=== PATIENT | female | born 1975 | race Caucasian/White ===

== ENCOUNTER → 2018-01-13 14:25 | Outpatient (CLI) | payer OTHER, MEDICAID, SELFPAY | PROVIDERS: Family Provider Podiatrist; PCP Physician Assistant; Visit Provider Physician Assistant | DX: L02.91 Cutaneous abscess, unspecified (principal) | CPT/HCPCS: 87070; 87075; 87077; 87147; 87186; 87205 ==

== ENCOUNTER 2020-12-28 16:59 | Emergency (ER) | payer OTHER, MEDICAID, SELFPAY ==
[2020-12-28 17:22] VITALS: BP 201/103; PULSE 106; RESP 22; TEMP 36.6; O2SAT 97; BMI 41.5
--- NOTE | 2020-12-28 18:21 | DI.CT.S_ITS ---
PROCEDURE: CT FACIAL BONES W CON INDICATIONS: facial swelling, suspect dental abscess, ? retro-orbital inf TECHNIQUE: After the administration of intravenous contrast, 2.5 mm axial sections acquired from the mid-neck to the frontal sinuses, with coronal and sagittal reformats. For radiation dose reduction, the following was used: automated exposure control, adjustment of mA and/or kV according to patient size. COMPARISON: None. FINDINGS: There are multiple carious lesions and multiple periapical lucencies. There are few small areas of focal dehiscence of the maxillary alveolar ridge adjacent to a few of the periapical lucencies. Adjacent to one of these areas of dehiscence there is increased soft tissue enhancement surrounding a central low-density area of suspected phlegmonous change measuring 1.2 centimeters (series 3, image 26). This is not an organized fluid collection and is not peripherally enhance, suggesting it does not represent an abscess. There is mild soft tissue swelling in the right malar region surrounding this phlegmonous change. Orbital structures are normal in appearance. There is no fracture. Limited intracranial views demonstrate no abnormal enhancement. Right sphenoid sinus fluid level suggesting acute sinusitis. IMPRESSION: Multifocal carious disease with associated kaitlin-apical lucencies and diffuse foci of alveolar ridge dehiscence, including one with some reactive soft tissue changes and phlegmonous change, but no abscess. No CT evidence of orbital cellulitis or orbital infection. Dictated by: Getachew Reddy M.D. on 12/28/2020 at 19:18 Approved by: Getachew Reddy M.D. on 12/28/2020 at 19:23
--- NOTE | 2020-12-28 18:51 | ED.GENADULT ---
HPI - General Adult General Chief complaint: Dental/Oral Stated complaint: RIGHT SIDE FACE SWELLING Time Seen by Provider: 12/28/20 18:03 Source: patient and family Mode of arrival: Family Vehicle Limitations: no limitations History of Present Illness HPI narrative: 45-year-old woman no significant medical history presents with right facial swelling that is been increasing over the last 3 days. She states that initially started over the right maxillary area with pain radiating to the eye that year and the right side of the jaw. Was initially tolerable but today became significantly worse with increasing swelling. She was seen in the urgent care clinic and a CT scan was ordered however when she presented to the hospital to have the scan done she was told that she needed insurance approval. About that time she had significant increased pain and then began having prolonged bloody discharge from both her nose and her mouth with increasing pain around her eye and some scotomata noticed on the right side peripheral field eye. Pain has gotten worse, swelling has slightly decreased. She describes no fevers, cough, chills, abdominal pain, vomiting. She does not describe any fullness extending down the back of her throat or breathing difficulties. No significant headaches. Related Data Previous Rx's Medication Instructions Recorded Disabled Parking Placard #1 ea 12/07/18 amoxicillin 875 mg-potassium 1 tab PO BID #20 tab 12/28/20 clavulanate 125 mg tablet (Augmentin) amoxicillin 875 mg-potassium 1 tab PO BID #20 tab 12/28/20 clavulanate 125 mg tablet (Augmentin) ibuprofen 400 mg tablet 400 mg PO Q6H PRN #30 tab 12/28/20 ibuprofen 400 mg tablet (IBU) 400 mg PO Q6H PRN #30 tab 12/28/20 oxycodone-acetaminophen 5 mg-325 1 tab PO Q6H PRN #10 tab 12/28/20 mg tablet oxycodone-acetaminophen 5 mg-325 1 tab PO Q8H PRN #14 tab 12/28/20 mg tablet (Endocet) Allergies Allergy/AdvReac Type Severity Reaction Status Date / Time erythromycin base Allergy Severe Hives, Verified 12/28/20 17:22 [ERYTHROMYCIN BASE] rash, swelling succinylcholine Allergy Severe anaphylaxis Verified 12/28/20 17:22 [SUCCINYLCHOLINE] aspirin [ASPIRIN] Allergy Mild Rash, Verified 12/28/20 17:22 nausea Review of Systems Review of Systems Narrative: Remainder of complete review of systems is otherwise unremarkable except for that included in the HPI. Patient History Medical History Ankle pain (~2015) Anxiety (~1999) Chronic back pain (~2011) History of bipolar disorder (~1999) Migraines (~1999) PTSD (post-traumatic stress disorder) (~1999) Shoulder pain (~1999) Surgical History Anesthesia History of back surgery (~2005) History of cholecystectomy (~1996) Status post tubal ligation (~1998) Family History Father History of heart attack History of heart disease Sister Cervical cancer Social History Smoking Status: Former smoker Tobacco: How many years used: 20 second hand exposure: No alcohol intake: former (Quit 2014) substance use type: marijuana (smoke, daily) Smoking Status: Former smoker tobacco type: cigarettes alcohol intake frequency: 0-2 drinks per day Substance Use Type: marijuana Exam Narrative Exam Narrative: General: Healthy appearing, notable facial pain. Able to give a complete and coherent history. Well-nourished well-developed HEENT: Moist mucous membranes, normal sclera with reactive pupils, nonpainful and non restricted extra ocular eye movements bilaterally. Fullness over the right maxilla. Neck: No JVD, supple Respiratory: Lungs are clear to auscultation, no wheezing no rales no rhonchi. Full and symmetrical air movement Cardiac: Regular rate and rhythm no murmurs no bruits Abdomen: Soft, nontender, good bowel tones, no flank pain Skin: Warm and dry, no rashes Neurologic: Grossly neurologically intact with no obvious asymmetries or abnormalities Extremities: No trauma, well perfused Psych: Cooperative, appropriate insight and affect Initial Vital Signs Initial Vital Signs: Vital Signs Temperature 97.8 F 12/28/20 17:22 Pulse Rate 106 H 12/28/20 17:22 Respiratory Rate 22 12/28/20 17:22 Blood Pressure 201/103 H 12/28/20 17:22 Pulse Oximetry 97 12/28/20 17:22 Course Orders Ordered: ED Orders 12/28/20 18:58 Complete Blood Count AUTO DIFF Stat Comprehensive Metabolic Panel Stat 12/28/20 19:03 COVID19 - ADMIT (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/PCR) Stat Discontinued Medications Ketorolac Tromethamine (Ketorolac 30 Mg/Ml Vial) 15 mg IV NOW ONE Stop: 12/28/20 18:22 Last Admin: 12/28/20 18:56 Dose: 15 mg Documented by: NU Oxycodone/Acetaminophen (Oxycodone/Apap 5/325 Prepack) 1 bottle MISC SEEINSTR ONE Stop: 12/28/20 21:07 Last Admin: 12/28/20 21:10 Dose: 1 bottle Documented by: TIM Oxycodone/Acetaminophen (Oxycodone/Acetaminophen 5/325 Tablet) 1 tab PO NOW ONE Stop: 12/28/20 21:07 Last Admin: 12/28/20 21:10 Dose: 1 tab Documented by: TIM Vital Signs Vital signs: Vital Signs - 8 hr 12/28/20 20:30 Pulse Rate 88 Respiratory Rate 20 Blood Pressure 169/80 H Pulse Oximetry 99 Medical Decision Making Lab Data Result diagrams: 12/28/20 18:58 12/28/20 18:58 Labs: Lab Results 12/28/20 12/28/20 12/28/20 Range/Units 18:58 18:58 19:03 WBC 11.3 H (4.5-11.0) X10^3/uL RBC 5.52 H (4.0-5.2) X10^6/uL Hgb 15.5 (12.0-16.0) g/dL Hct 46.1 H (36-46) % MCV 83.5 (80-100) fL MCH 28.0 (26-34) PG MCHC 33.6 (30-36) % RDW 13.8 (11.6-14.8) % Plt Count 200 (150-400) X10^3/uL Neut % (Auto) 64.1 (50-75) % Lymph % (Auto) 27.9 (25-40) % [place] % (Auto) 5.9 (3-14) % Eos % (Auto) 1.2 L (2-4) % Baso % (Auto) 0.9 (0-2) % Neut # (Auto) 7200 H (6431-2751) /uL Lymph # (Auto) 3200 (5852-3457) /uL [place] # (Auto) 700 (0-900) /uL Eos # (Auto) 100 (0-450) /uL Baso # (Auto) 100 (0-100) /uL Sodium 135 L (137-145) mmol/L Potassium 4.0 (3.4-5.1) mmol/L Chloride 103 (98-107) mmol/L Carbon Dioxide 23 (22-32) mmol/L BUN 7 (7-17) mg/dL Creatinine 0.46 L (0.52-1.04) mg/dL Estimated GFR > 60.0 (>60) mL/min BUN/Creatinine Ratio 15.2 (6-22) Glucose 249 H (70-100) mg/dL Calcium 10.4 H (8.4-10.2) mg/dL Total Bilirubin 0.5 (0.2-1.3) mg/dL AST 29 (14-36) IU/L ALT 28 (<35) IU/L Alkaline Phosphatase 78 (38-126) U/L Total Protein 8.5 H (6.3-8.2) g/dL Albumin 4.6 (3.5-5.0) g/dL Globulin 3.9 (1.7-4.1) g/dL Albumin/Globulin Ratio 1.2 (1.0-2.8) SARS-CoV-2 (PCR) Negative (Negative) Imaging Data CT face: Radiologist's Impression: FINDINGS: There are multiple carious lesions and multiple periapical lucencies. There are few small areas of focal dehiscence of the maxillary alveolar ridge adjacent to a few of the periapical lucencies. Adjacent to one of these areas of dehiscence there is increased soft tissue enhancement surrounding a central low-density area of suspected phlegmonous change measuring 1.2 centimeters (series 3, image 26). This is not an organized fluid collection and is not peripherally enhance, suggesting it does not represent an abscess. There is mild soft tissue swelling in the right malar region surrounding this phlegmonous change. Orbital structures are normal in appearance. There is no fracture. Limited intracranial views demonstrate no abnormal enhancement. Right sphenoid sinus fluid level suggesting acute sinusitis. IMPRESSION: Multifocal carious disease with associated kaitlin-apical lucencies and diffuse foci of alveolar ridge dehiscence, including one with some reactive soft tissue changes and phlegmonous change, but no abscess. No CT evidence of orbital cellulitis or orbital infection. Dictated by: Getachew Reddy M.D. on 12/28/2020 at 19:18 MDM Narrative Medical decision making narrative: 45-year-old woman with dental infection developing abscess in the maxillary area that has recently opened up and now appears to be draining. No evidence of extension into the brain, periorbital space or sinuses. No retropharyngeal abscess. She is given ceftriaxone in the emergency department. Pain is controlled. Discharged home with Augmentin. Strongly recommended she follow-up with a dentist and will likely benefit from having all of her teeth pulled. She was not aware that she had a diagnosis of diabetes because she ?has always had hypoglycemia ?. A shared with her her single elevated blood sugar today and suggested she follow-up with her primary care physician regarding her very likely diagnosis of diabetes being aggravated by her chronic oral infections. She is safe for home discharge Discharge Plan Departure Patient Disposition: Home Clinical Impression: Dental caries, Dental abscess Instructions: DI for Tooth Decay Activity Restrictions/Additional Instructions: You do have a large dental abscess that is now draining. This is the cause of the severe pain and facial swelling. Fortunately there is no evidence the abscess is working its way around your eye ball or back anterior brain or down your throat. The fact that it is now draining is actually very encouraging for healing. You have multiple other small abscesses associated with your upper teeth as well. I am going to have you take 10 days of Augmentin to treat the abscesses as they are now however having your teeth pulled is going to be the definitive treatment. Using 400 mg of ibuprofen (2 [id number] pills) and 1 Tylenol every 6 hours can be very helpful in controlling pain. For severe pain 400 mg of ibuprofen and 1 Percocet can be helpful All prescriptions have been electronically transmitted to [facility] for you today Incidentally, your blood sugar was elevated in the 240 range today. This by itself is a diagnosis of diabetes. Getting a your teeth fixed and the chronic infection resolved will make a big difference in control of your diabetes. I would encourage you follow-up with your primary care physician to discuss this diagnosis, need for medications and further follow-up. I wish you the best Prescriptions: New amoxicillin-pot clavulanate [Augmentin] 875-125 mg tablet 1 tab PO BID Qty: 20 RF: 0 oxycodone-acetaminophen [Endocet] 5-325 mg tablet 1 tab PO Q8H PRN (Reason: pain) Qty: 14 RF: 0 ibuprofen [IBU] 400 mg tablet 400 mg PO Q6H PRN (Reason: pain) Qty: 30 RF: 0 amoxicillin-pot clavulanate [Augmentin] 875-125 mg tablet 1 tab PO BID Qty: 20 RF: 0 oxycodone-acetaminophen 5-325 mg tablet 1 tab PO Q6H PRN (Reason: pain) Qty: 10 RF: 0 ibuprofen 400 mg tablet 400 mg PO Q6H PRN (Reason: pain) Qty: 30 RF: 0 No Action (DME) Disabled Parking Placard Qty: 1 RF: 0 Referrals: Bonnie Griffin ARNP [Primary Care Provider] -
[2020-12-28] MEDS: KETOROLAC 30 MG/ML VIAL 15 MG IV (18:56)
[2020-12-28 19:25] LABS: Add Manual Diff / Slide Review NO; Basophils Absolute Auto 100 /uL (0-100); Basophils Percent Auto 0.9 % (0-2); Eosinophils Absolute Auto 100 /uL (0-450); Eosinophils Percent Auto 1.2 % (2-4); Hematocrit 46.1 % (36-46); Hemoglobin 15.5 g/dL (12.0-16.0); Lymphocytes Absolute Auto 3200 /uL (1100-4500); Lymphocytes Percent Auto 27.9 % (25-40); Mean Corpuscular HGB Conc 33.6 % (30-36); Mean Corpuscular Volume 83.5 fL (80-100); Monocytes Absolute Auto 700 /uL (0-900); Monocytes Percent Auto 5.9 % (3-14); Neutrophils Absolute Auto 7200 /uL (1500-7000); Neutrophils Percent Auto 64.1 % (50-75); Platelet Count 200 X10^3/uL (150-400); Red Blood Cell Count 5.52 X10^6/uL (4.0-5.2); Red Cell Distribution Width 13.8 % (11.6-14.8); White Blood Cell Count 11.3 X10^3/uL (4.5-11.0)
[2020-12-28 19:44] LABS: Alanine Aminotransferase 28 IU/L (<35); Albumin 4.6 g/dL (3.5-5.0); Albumin Globulin Ratio 1.2 (1.0-2.8); Alkaline Phosphatase 78 U/L (38-126); Aspartate Aminotransferase 29 IU/L (14-36); BUN Creatinine Ratio 15.2 (6-22); Bilirubin Total 0.5 mg/dL (0.2-1.3); Blood Urea Nitrogen 7 mg/dL (7-17); Calcium 10.4 mg/dL (8.4-10.2); Carbon Dioxide 23 mmol/L (22-32); Chloride 103 mmol/L (98-107); Estimated Glomerular Filt Rate > 60.0 mL/min (>60); Globulin 3.9 g/dL (1.7-4.1); Glucose 249 mg/dL (70-100); HEMOLYSIS 27 (0-50); Sodium 135 mmol/L (137-145); Total Protein 8.5 g/dL (6.3-8.2)
[2020-12-28 20:28] LABS: COVID19 - ADMIT (NP swab/PCR) Negative (Negative)
[2020-12-28 20:30] VITALS: BP 169/80; PULSE 88; RESP 20; O2SAT 99
[2020-12-28] MEDS: OXYCODONE/APAP 5/325 PREPACK 1 BOTTLE MISC (21:10)
[2020-12-28] MEDS: OXYCODONE/ACETAMINOPHEN 5/325 TABLET 1 TAB PO (21:10)
== END 2020-12-28 21:53 | disposition home or self-care (01) ==
PROVIDERS: Emergency Provider Emergency Medicine; Family Provider Podiatrist; PCP Nurse Practitioner Family
DX: K02.9 Dental caries, unspecified (principal); K04.7 Periapical abscess without sinus; Z20.822 Contact with and (suspected) exposure to COVID-19
CPT/HCPCS: 36415; 70487; 80053; 85025; 87635; 96374; 99284; C9803; J1885; Q9967

== ENCOUNTER 2021-06-12 19:05 | Emergency (ER) | payer OTHER, MEDICAID, SELFPAY ==
[2021-06-12 19:11] VITALS: BP 196/107; PULSE 102; RESP 24; TEMP 36.7; O2SAT 98; BMI 40.7
--- NOTE | 2021-06-12 19:18 | DI.RAD.S_ITS ---
PROCEDURE: XR SHOULDER LT MIN 2V INDICATIONS: fell and hurt left shoulder/arm TECHNIQUE: 3 views of the shoulder were acquired. COMPARISON: None. FINDINGS: Bones: No fractures or dislocations. No suspicious bony lesions. Visualized ribs appear intact. Soft tissues: No suspicious soft tissue calcifications. IMPRESSION: No trauma found. Dictated by: Jeb Yoon M.D. on 06/12/2021 at 20:07 Approved by: Jeb Yoon M.D. on 06/12/2021 at 20:08
--- NOTE | 2021-06-12 19:19 | DI.RAD.S_ITS ---
PROCEDURE: XR HUMERUS LT 2V INDICATIONS: fell and hurt left shoulder/arm TECHNIQUE: 2 views of the humerus were acquired. COMPARISON: None. FINDINGS: Bones: No fractures or dislocations. No suspicious bony lesions. Soft tissues: No suspicious soft tissue calcifications. IMPRESSION: No osseous trauma found. No definite ligamentous injury identified. Dictated by: Jeb Yoon M.D. on 06/12/2021 at 20:05 Approved by: Jeb Yoon M.D. on 06/12/2021 at 20:07
--- NOTE | 2021-06-12 19:19 | DI.RAD.S_ITS ---
PROCEDURE: XR WRIST LT MIN 3V INDICATIONS: fell and hurt left shoulder/wrist TECHNIQUE: 4 views of the wrist were acquired. COMPARISON: None. FINDINGS: Bones: No fractures or dislocations. No suspicious bony lesions. Scaphoid view: No trauma Soft tissues: No suspicious soft tissue calcifications. IMPRESSION: No trauma found. Dictated by: Jeb Yoon M.D. on 06/12/2021 at 20:07 Approved by: Jeb Yoon M.D. on 06/12/2021 at 20:07
--- NOTE | 2021-06-12 21:48 | ED.GENADULT ---
HPI - General Adult General Chief complaint: Extremity Injury, Upper Stated complaint: Lt. shoulder pain/Lt. and Rt. wrist pain Time Seen by Provider: 06/12/21 21:12 Source: patient and family Mode of arrival: Wheelchair History of Present Illness HPI narrative: Patient is a 45-year-old female here for evaluation left-sided shoulder pain left arm pain left wrist pain. States that the symptoms starting after she stumbled and hit her left arm on the wall. She has difficulty moving her arm secondary to the pain. Seems to be located in the upper back mostly. She states ?I know pain and this is bad ?has not tried anything for the symptoms prior to arrival Related Data Previous Rx's Medication Instructions Recorded Disabled Parking Placard #1 ea 12/07/18 amoxicillin 875 mg-potassium 1 tab PO BID #20 tab 12/28/20 clavulanate 125 mg tablet (Augmentin) amoxicillin 875 mg-potassium 1 tab PO BID #20 tab 12/28/20 clavulanate 125 mg tablet (Augmentin) ibuprofen 400 mg tablet 400 mg PO Q6H PRN #30 tab 12/28/20 ibuprofen 400 mg tablet (IBU) 400 mg PO Q6H PRN #30 tab 12/28/20 oxycodone-acetaminophen 5 mg-325 1 tab PO Q6H PRN #10 tab 12/28/20 mg tablet oxycodone-acetaminophen 5 mg-325 1 tab PO Q8H PRN #14 tab 12/28/20 mg tablet (Endocet) Allergies Allergy/AdvReac Type Severity Reaction Status Date / Time erythromycin base Allergy Severe Hives, Verified 12/28/20 17:22 [ERYTHROMYCIN BASE] rash, swelling succinylcholine Allergy Severe anaphylaxis Verified 12/28/20 17:22 [SUCCINYLCHOLINE] aspirin [ASPIRIN] Allergy Mild Rash, Verified 12/28/20 17:22 nausea Review of Systems Constitutional Constitutional: Reports system reviewed and no additional complaints, except as documented Musculoskeletal Musculoskeletal: Reports system reviewed and no additional complaints, except as documented and Reports as per HPI Hematologic/Lymphatic On Anticoagulants: No Patient History Medical History Ankle pain (~2015) Anxiety (~1999) Chronic back pain (~2011) History of bipolar disorder (~1999) Migraines (~1999) PTSD (post-traumatic stress disorder) (~1999) Shoulder pain (~1999) Surgical History Anesthesia History of back surgery (~2005) History of cholecystectomy (~1996) Status post tubal ligation (~1998) Family History Father History of heart attack History of heart disease Sister Cervical cancer Social History Smoking Status: Current every day smoker Tobacco: How many years used: 20 second hand exposure: No alcohol intake: former (Quit 2014) substance use type: marijuana (smoke, daily) Smoking Status: Current every day smoker tobacco type: cigarettes alcohol intake frequency: 0-2 drinks per day Substance Use Type: marijuana Exam Initial Vital Signs Initial Vital Signs: Vital Signs Temperature 98.1 F 06/12/21 19:11 Pulse Rate 102 H 06/12/21 19:11 Respiratory Rate 24 06/12/21 19:11 Blood Pressure 196/107 H 06/12/21 19:11 Pulse Oximetry 98 06/12/21 19:11 Cardio Pulses: radial pulses present on the left Skin General: no rashes or lesions noted Neuro Sensory Exam: no sensory deficits noted Extrem Other: Patient has discomfort on the left anterior shoulder and also posterior shoulder. Unable to move the shoulder secondary to discomfort. Difficult to obtain any sort of significant exam of her left upper extremity secondary to pain. Course Orders Ordered: ED Orders 06/12/21 19:18 XR shoulder LT min 2V Stat 06/12/21 19:19 XR humerus LT 2V Stat XR wrist LT min 3V Stat Discontinued Medications Hydrocodone Bitart/Acetaminophen (Hydrocodone/Acet 5/325 Prepack) 1 bottle MISC SEEINSTR ONE Stop: 06/12/21 21:49 Last Admin: 06/12/21 22:04 Dose: 1 bottle Documented by: ADAIR Vital Signs Vital signs: Vital Signs - 8 hr 06/12/21 22:05 Pulse Rate 96 H Respiratory Rate 20 Blood Pressure 184/96 H Pulse Oximetry 100 Medical Decision Making Imaging Data Extremity x-ray #1: Radiologist's Impression: [address] [address] XRay Report Signed Patient: Ellen Lucero V MR#: [id number] : 1975 Acct:[id number] Age/Sex: 45 / F Date of Service: 06/12/21 Loc: ED Accession Number: [id number] ?? Procedure: XR shoulder LT min 2V Ordering Provider: Neel Gallego D.O. PROCEDURE:? XR SHOULDER LT MIN 2V ? INDICATIONS:? fell and hurt left shoulder/arm ? TECHNIQUE:? 3 views of the shoulder were acquired.? ? COMPARISON:? None. ? FINDINGS:? ? Bones:? No fractures or dislocations.? No suspicious bony lesions.? Visualized ribs appear intact.? ? Soft tissues:? No suspicious soft tissue calcifications.? ? IMPRESSION:? No trauma found. ? ? Dictated by: Jeb Yoon M.D. on 06/12/2021 at 20:07 ? ? Approved by: Jeb Yoon M.D. on 06/12/2021 at 20:08?? Extremity x-ray #2: Radiologist's Impression: [address] [address] XRay Report Signed Patient: Ellen Lucero V MR#: [id number] : 1975 Acct:[id number] Age/Sex: 45 / F Date of Service: 06/12/21 Loc: ED Accession Number: [id number] ?? Procedure: XR humerus LT 2V Ordering Provider: Neel Gallego D.O. PROCEDURE:? XR HUMERUS LT 2V ? INDICATIONS:? fell and hurt left shoulder/arm ? TECHNIQUE:? 2 views of the humerus were acquired.? ? COMPARISON:? None. ? FINDINGS:? ? Bones:? No fractures or dislocations.? No suspicious bony lesions.? ? Soft tissues:? No suspicious soft tissue calcifications.? ? IMPRESSION:? No osseous trauma found.? No definite ligamentous injury identified. ? ? Dictated by: Jeb Yoon M.D. on 06/12/2021 at 20:05 ? ? Approved by: Jeb Yoon M.D. on 06/12/2021 at 20:07?? Extremity x-ray #3: Radiologist's Impression: [address] [address] XRay Report Signed Patient: Ellen Lucero V MR#: [id number] : 1975 Acct:[id number] Age/Sex: 45 / F Date of Service: 06/12/21 Loc: ED Accession Number: [id number] ?? Procedure: XR wrist LT min 3V Ordering Provider: Neel Gallego D.O. PROCEDURE:? XR WRIST LT MIN 3V ? INDICATIONS: fell and hurt left shoulder/wrist ? TECHNIQUE:? 4 views of the wrist were acquired.? ? COMPARISON:? None. ? FINDINGS:? ? Bones:? No fractures or dislocations.? No suspicious bony lesions.? ? Scaphoid view:? No trauma ? Soft tissues:? No suspicious soft tissue calcifications.? ? IMPRESSION:? No trauma found. ? ? Dictated by: Jeb Yoon M.D. on 06/12/2021 at 20:07 ? ? Approved by: Jeb Yoon M.D. on 06/12/2021 at 20:07?? MDM Narrative Medical decision making narrative: No fractures noted on the x-rays. She is neurovascularly intact. Difficult to obtain any significant exam here in the emergency department because of the discomfort. She was placed in a sling for her comfort and she was instructed she need to contact her primary doctor for a follow-up in a couple days in order to obtain a better exam and potentially further evaluation and treatment. Discharge Plan Departure Patient Disposition: Home Clinical Impression: Acute pain of left shoulder Instructions: How to Use a Sling, DI for Shoulder Pain Activity Restrictions/Additional Instructions: The sling is for your comfort however we do recommend that you are out of the sling and moving your arm as much as possible. You can use ice. You can also take Tylenol/ibuprofen. Contact your primary doctor for follow-up and to discuss further evaluation to include potential further imaging studies or referral to see Physical therapy or Orthopedics. Prescriptions: No Action (DME) Disabled Parking Placard Qty: 1 0RF Dose Instruction: As directed Rx Instructions: Meets criteria for permanent placard amoxicillin-pot clavulanate [Augmentin] 875-125 mg tablet 1 tab PO BID Qty: 20 0RF oxycodone-acetaminophen [Endocet] 5-325 mg tablet 1 tab PO Q8H PRN (Reason: pain) Qty: 14 0RF ibuprofen [IBU] 400 mg tablet 400 mg PO Q6H PRN (Reason: pain) Qty: 30 0RF amoxicillin-pot clavulanate [Augmentin] 875-125 mg tablet 1 tab PO BID Qty: 20 0RF oxycodone-acetaminophen 5-325 mg tablet 1 tab PO Q6H PRN (Reason: pain) Qty: 10 0RF ibuprofen 400 mg tablet 400 mg PO Q6H PRN (Reason: pain) Qty: 30 0RF Referrals: Bonnie Griffin ARNP [Primary Care Provider] -
[2021-06-12] MEDS: HYDROCODONE/ACET 5/325 PREPACK 1 BOTTLE MISC (22:04)
[2021-06-12 22:05] VITALS: BP 184/96; PULSE 96; RESP 20; O2SAT 100
== END 2021-06-12 22:06 | disposition home or self-care (01) ==
PROVIDERS: Emergency Provider Emergency Medicine; Family Provider Podiatrist; PCP Nurse Practitioner Family
DX: M25.512 Pain in left shoulder (principal); M25.532 Pain in left wrist; M79.622 Pain in left upper arm
CPT/HCPCS: 73030; 73060; 73110; 99283

== ENCOUNTER → 2021-08-31 09:21 | Outpatient (CLI) | payer OTHER, MEDICAID, SELFPAY ==
--- NOTE | 2021-08-31 09:22 | DI.US.S_ITS ---
LIMITED ULTRASOUND OF LEFT BREAST: 08/31/2021 CLINICAL: Palpable left breast lump x 2. Comparison is made to exam dated: 08/31/2021 mammogram - [facility]. Real-time ultrasound of the left breast 10 o'clock and 12 o'clock regions was performed. Mir scale images of the real-time examination were reviewed. No significant abnormalities were seen sonographically in the left breast. IMPRESSION: NEGATIVE There is no sonographic evidence of malignancy. There are no abnormalities seen in the left breast to correspond with the palpable abnormalities; however, clinical followup is recommended. A 1 year screening mammogram is recommended. This exam was interpreted at Station ID: [id number]. Electronically Signed By: Santiago Rivas M.D. ar/:08/31/2021 10:36:54 letter sent: Clinical Evaluation Ultrasound BI-RADS: 1 Negative
--- NOTE | 2021-08-31 09:22 | DI.MG.S_ITS ---
BILATERAL DIGITAL DIAGNOSTIC MAMMOGRAM 3D/2D: 08/31/2021 CLINICAL: Baseline mammo. Left breast lumps and pain. Family history of breast cancer. No prior exams were available for comparison. There are scattered fibroglandular elements in both breasts. No significant masses, calcifications, or other findings are seen in either breast. IMPRESSION: INCOMPLETE: NEEDS ADDITIONAL IMAGING EVALUATION There is no abnormality seen in the left breast to correspond with the palpable abnormality in the superior aspect, however, ultrasound is recommended. There is no abnormality seen in the left breast to correspond with the palpable abnormality in the medial aspect, however, ultrasound is recommended. This exam was interpreted at Station ID: [id number]. NOTE: For mammograms, a report in lay terms will be sent to the patient. Approximately 15% of breast malignancies will not be visualized mammographically. In the management of a palpable breast mass, a negative mammogram must not discourage biopsy of a clinically suspicious lesion. Electronically Signed By: Santiago vargas/maurisio:08/31/2021 10:30:10 ACR BI-RADS Category 0: Incomplete [id number]
== END ==
PROVIDERS: Family Provider Podiatrist; PCP Nurse Practitioner Family; Referring Provider Nurse Practitioner Family; Visit Provider Nurse Practitioner Family
DX: N63.20 Unspecified lump in the left breast, unspecified quadrant (principal); R92.2 Inconclusive mammogram; Z80.3 Family history of malignant neoplasm of breast
CPT/HCPCS: 76642; 77066; G0279

== ENCOUNTER → 2022-02-07 10:08 | Outpatient (CLI) | payer OTHER, MEDICAID, SELFPAY ==
--- NOTE | 2022-02-07 10:09 | DI.RAD.S_ITS ---
PROCEDURE: XR ANKLE LT MIN 3V INDICATIONS: pain dorsal foot and ankle s/p injury TECHNIQUE: 3 views of the ankle were acquired. COMPARISON: [facility], CR, XR FOOT LT MIN 3V, 02/07/2022, 10:08. FINDINGS: Bones: No fractures or dislocations. Ankle mortise is normally aligned. No suspicious bony lesions. Plantar and posterior calcaneal spur. There is widening of the tibial-fibular distal syndesmosis noted Soft tissues: No tibiotalar joint effusion. Achilles tendon appears normal. IMPRESSION: Widening of the distal tibial-fibular joint may reflect ligamentous injury. Consider follow-up MR evaluation Approved by: Hector Humphrey M.D. on 02/07/2022 at 10:48
--- NOTE | 2022-02-07 10:09 | DI.RAD.S_ITS ---
PROCEDURE: XR FOOT LT MIN 3V INDICATIONS: eval pain dorsal foot and ankle s/p injury TECHNIQUE: 3 views of the foot were acquired. COMPARISON: [facility], , FOOT 3V RIGHT, 05/15/2015, 14:55. FINDINGS: Bones: No fractures or dislocations. No suspicious bony lesions. Large posterior and plantar calcaneal spurs Soft tissues: No tibiotalar joint effusion. Achilles tendon appears normal. IMPRESSION: Large calcaneal spurs Approved by: Hector Humphrey M.D. on 02/07/2022 at 10:49
== END ==
PROVIDERS: Family Provider Podiatrist; PCP Registered Nurse Diabetes Educator; Referring Provider Registered Nurse Diabetes Educator; Visit Provider Registered Nurse Diabetes Educator
DX: M25.572 Pain in left ankle and joints of left foot (principal); M79.672 Pain in left foot; M77.32 Calcaneal spur, left foot
CPT/HCPCS: 73610; 73630

== ENCOUNTER → 2022-02-11 08:31 | Outpatient (CLI) | payer OTHER, MEDICAID, SELFPAY ==
[2022-02-11 09:49] LABS: Add Manual Diff / Slide Review NO; Basophils Absolute Auto 100 /uL (0-100); Basophils Percent Auto 0.7 % (0-2); Eosinophils Absolute Auto 200 /uL (0-450); Eosinophils Percent Auto 1.7 % (2-4); Hematocrit 41.6 % (36-46); Hemoglobin 14.3 g/dL (12.0-16.0); Lymphocytes Absolute Auto 3500 /uL (1100-4500); Lymphocytes Percent Auto 32.7 % (25-40); Mean Corpuscular HGB Conc 34.3 % (30-36); Mean Corpuscular Hemoglobin 28.7 PG (26-34); Mean Corpuscular Volume 83.5 fL (80-100); Monocytes Absolute Auto 400 /uL (0-900); Monocytes Percent Auto 3.8 % (3-14); Neutrophils Absolute Auto 6500 /uL (1500-7000); Neutrophils Percent Auto 61.1 % (50-75); Platelet Count 180 X10^3/uL (150-400); Red Blood Cell Count 4.98 X10^6/uL (4.0-5.2); Red Cell Distribution Width 13.3 % (11.6-14.8); White Blood Cell Count 10.7 X10^3/uL (4.5-11.0)
[2022-02-11 10:03] LABS: Alanine Aminotransferase 24 IU/L (<35); Albumin Globulin Ratio 1.1 (1.0-2.8); Alkaline Phosphatase 62 U/L (38-126); Aspartate Aminotransferase 24 IU/L (14-36); BUN Creatinine Ratio 15.3 (6-22); Bilirubin Total 0.3 mg/dL (0.2-1.3); Blood Urea Nitrogen 9 mg/dL (7-17); Calcium 8.8 mg/dL (8.4-10.2); Carbon Dioxide 22 mmol/L (22-32); Chloride 103 mmol/L (98-107); Cholesterol 173 mg/dL (140-199); Estimated Glomerular Filt Rate > 60 mL/min (>60); Globulin 3.8 g/dL (1.7-4.1); Glucose 166 mg/dL (70-100); HDL Cholesterol 29 mg/dL (40-60); HEMOLYSIS < 15 (0-50); Hemoglobin A1C% w Est Avg Glu 8.7 % (4.0-6.0); LDL Cholesterol Calculated 110 mg/dL (<100); Potassium 4.2 mmol/L (3.4-5.1); Sodium 134 mmol/L (137-145); Total Protein 7.8 g/dL (6.3-8.2); Triglycerides 171 mg/dL (35-150)
[2022-02-11 10:36] LABS: TSH w/ Reflex to FT4 2.98 uIU/mL (0.47-4.68)
== END ==
PROVIDERS: Family Provider Podiatrist; PCP Registered Nurse Diabetes Educator; Referring Provider Registered Nurse Diabetes Educator; Visit Provider Registered Nurse Diabetes Educator
DX: R73.9 Hyperglycemia, unspecified (principal)
CPT/HCPCS: 36415; 80053; 80061; 83036; 84443; 85025

== ENCOUNTER → 2022-02-17 15:59 | Outpatient (CLI) | payer OTHER, MEDICAID, SELFPAY ==
--- NOTE | 2022-02-17 16:03 | DI.MRI.S_ITS ---
PROCEDURE: MR LUMBAR SPINE WO CON INDICATIONS: pain TECHNIQUE: Noncontrast sagittal T1 spin echo and T2 fast echo, sagittal STIR, and T2 fast spin echo through the lumbar spine. In cases with scoliosis, additional coronal T2 fast spin echo may be performed. COMPARISON: [facility], ZOE, MRI L-SPINE W/O CONTRAST, 01/12/2004, 11:43. [facility], MICHELE, L-SPINE 2-3 VIEWS, 02/25/2013, 11:17. FINDINGS: Image quality: This examination is limited by involuntary motion artifact. Alignment and Curvature: There is normal bony alignment. Bone Marrow: Marrow is of normal overall signal. Scattered foci are seen, which are hyperintense on T1-weighted and T2-weighted imaging, which are most consistent with benign vertebral body hemangiomas. No acute vertebral body compression fractures. Spinal Cord: Conus medullaris terminates at the L1 level. Visualized cord demonstrates normal signal and size. Paraspinous Soft Tissues: No paravertebral masses. Postoperative change can be seen on the right at L5-S1. T12-L1: Normal appearance. L1-L2: Normal appearance. L2-L3: Normal appearance. L3-L4: The disc height and disk signal are well-preserved. Mild generalized disc bulge is seen. Moderate facet joint hypertrophy is seen. No significant neural foraminal narrowing is seen. Mild central canal narrowing is seen. L4-L5: The disc height and disk signal are well-preserved. Mild to moderate disc bulge is seen. Mild to moderate facet hypertrophy is seen. There is mild right-sided and no left-sided neural foraminal narrowing seen. Minimal central canal narrowing is seen. L5-S1: Moderate loss of disc height is seen. Loss of disc signal is seen. Moderate disc bulge is seen, with a right subarticular/right foraminal disc extrusion, with mild superior migration of the disc material. There is a focal annular fissure seen posteriorly. Moderate facet joint hypertrophy is seen. There is moderate right-sided and [id number] left-sided neural foraminal narrowing. No significant central canal narrowing is seen. Prior postoperative change can be seen at this level, with apparent hemilaminectomy. IMPRESSION: Lower lumbar spine degenerative changes are seen, including a right-sided disc extrusion at the L5-S1 level. These degenerative changes are overall progressed compared to 2003. Dictated by: Woody Kent M.D. on 02/17/2022 at 16:49 Approved by: Woody Kent M.D. on 02/17/2022 at 16:53
== END ==
PROVIDERS: Family Provider Podiatrist; PCP Registered Nurse Diabetes Educator; Referring Provider Family Medicine; Visit Provider Family Medicine
DX: M51.17 Intervertebral disc disorders with radiculopathy, lumbosacral region (principal); M47.27 Other spondylosis with radiculopathy, lumbosacral region; M47.26 Other spondylosis with radiculopathy, lumbar region; G89.29 Other chronic pain
CPT/HCPCS: 72148

== ENCOUNTER → 2022-02-25 15:42 | Outpatient (CLI) | payer OTHER, MEDICAID, SELFPAY ==
--- NOTE | 2022-02-25 15:42 | DI.MRI.S_ITS ---
PROCEDURE: MR ANKLE LT WO CON INDICATIONS: left foot and ankle pain TECHNIQUE: Noncontrast sagittal T1 spin echo and T2 fast spin echo with fat saturation, axial proton density fast spin echo and T2 fast spin echo with fat saturation, coronal T1 spin echo and T2 fast spin echo with fat saturation through the ankle/hindfoot. COMPARISON: None. FINDINGS: Image quality: Excellent. Bones and joints: No bone marrow contusions or fractures. No hindfoot coalitions. No osteochondral injuries of the talar dome. Well-defined plantar and dorsal calcaneal enthesophytes are seen. No pathologic joint effusions. Medial structures: The posterior tibialis, flexor digitorum longus, and flexor hallucis longus tendons are mildly thickened with small amount of fluid distending tendon sheath.. The posterior tibial neurovascular bundle appears normal within the tarsal tunnel, without extrinsic mass effect. Mildly thickened superficial fibers of deltoid ligament and spring ligament complex is seen. Lateral structures: The anterior talofibular, calcaneofibular, and posterior talofibular ligaments appear thickened. More superiorly, the anterior and posterior tibiofibular ligaments appear mildly thickened with intrasubstance T2 hyperintense signal. The tibiofibular syndesmosis is normal in width at 2 mm or less. The peroneus longus and brevis tendons also appears thickened with small amount of fluid distending tendon sheath at the level of lateral malleolus extending to calcaneocuboid joint. Adjacent bony peroneal tubercle and retrotrochlear prominence are normal in size. The sinus tarsi demonstrates normal fatty signal, without edema, fibrosis, or cyst formation. Visualized sinus tarsi components (cervical ligament, interosseous talocalcaneal ligament, roots of the inferior extensor retinaculum) appear normal. The calcaneonavicular and calcaneocuboid components of the bifurcate ligament appear intact. The dorsal calcaneocuboid ligament appears intact. Anterior structures: The tibialis anterior, extensor hallucis longus, and extensor digitorum longus tendons appear intact. The dorsal talonavicular ligament appears intact. Posterior and plantar structures: Thickened distal Achilles tendon at its posterior calcaneal insertion is seen with mild adjacent edema and intrasubstance T2 hyperintense signal. Medial and lateral bands of the plantar fascia are of normal thickness. No abductor digiti quinti muscle atrophy to suggest Lei neuropathy. IMPRESSION: 1. Well-defined plantar and dorsal calcaneal enthesophytes. Distal Achilles tendinosis at its posterior calcaneal insertion. No Achilles tendon rupture. Plantar fascia is intact. 2. Low-grade tenosynovitis involving flexor tendons. Sprain/low-grade partial-thickness tear involving deltoid ligament and spring ligament complex. 3. Low-grade tenosynovitis also noted involving peroneus tendons as above. Sprain/low-grade partial-thickness tear involving lateral ankle ligaments. Dictated by: Lloyd Chung M.D. on 02/25/2022 at 16:58 Approved by: Lloyd Chung M.D. on 02/25/2022 at 17:12
== END ==
PROVIDERS: Family Provider Podiatrist; PCP Registered Nurse Diabetes Educator; Referring Provider Registered Nurse Diabetes Educator; Visit Provider Registered Nurse Diabetes Educator
DX: S93.422A Sprain of deltoid ligament of left ankle, initial encounter (principal); S93.492A Sprain of other ligament of left ankle, initial encounter; M65.872 Other synovitis and tenosynovitis, left ankle and foot; M77.32 Calcaneal spur, left foot; M79.672 Pain in left foot; M25.572 Pain in left ankle and joints of left foot
CPT/HCPCS: 73721

== ENCOUNTER → 2022-03-16 07:42 | Outpatient (CLI) | payer OTHER, MEDICAID, SELFPAY ==
--- NOTE | 2022-03-16 07:44 | DI.RAD.S_ITS ---
PROCEDURE: XR LUMBAR SPINE MIN 4V INDICATIONS: BACK PAIN TECHNIQUE: 5 views of the lumbar spine were acquired, including bilateral oblique views. COMPARISON: [facility], MR, MR LUMBAR SPINE WO CON, 02/17/2022, 16:12. [facility], CR, L-SPINE 2-3 VIEWS, 02/25/2013, 11:17. FINDINGS: Bones: 5 nonrib-bearing vertebrae are present. There is normal bony alignment. No vertebral body compression fractures. Small vertebral body osteophytes. There is disc space height loss at L5-S1. No suspicious bony lesions. Soft tissues: Overlying bowel gas pattern is normal. No suspicious soft tissue calcifications. Cholecystectomy clips. Liver Reidel lobe or prominent size, unchanged since 2013. Oblique images: No pars defects. IMPRESSION: Mild degenerative changes in the lumbar spine which are similar to 2013. Similar disc space height loss at L5-S1. Dictated by: Elder West M.D. on 03/16/2022 at 9:17 Approved by: Elder West M.D. on 03/16/2022 at 9:20
== END ==
PROVIDERS: Family Provider Podiatrist; PCP Registered Nurse Diabetes Educator; Referring Provider Physical Medicine & Rehabilitation; Visit Provider Physical Medicine & Rehabilitation
DX: M47.816 Spondylosis without myelopathy or radiculopathy, lumbar region (principal); M54.40 Lumbago with sciatica, unspecified side; G89.29 Other chronic pain
CPT/HCPCS: 72110; 99214

== ENCOUNTER 2022-04-04 08:00 | Emergency (ER) | payer OTHER, MEDICAID, SELFPAY ==
--- NOTE | 2022-04-04 08:56 | PC.NURSE ---
attempted to triage patient, asked pt to wear a mask, pt started to yell, saying she would not wear a mask, using profanity, Pt said she was going to go to another hospital.
== END 2022-04-04 08:17 | disposition left against medical advice (07) ==
PROVIDERS: Emergency Provider Emergency Medicine; Family Provider Podiatrist; PCP Registered Nurse Diabetes Educator

== ENCOUNTER 2023-08-20 10:16 | Emergency (ER) | payer OTHER, MEDICAID, SELFPAY ==
[2023-08-20 10:23] VITALS: BP 173/90; PULSE 107; RESP 20; TEMP 37.2; O2SAT 99; BMI 42.3
--- NOTE | 2023-08-20 10:33 | PC.NURSE ---
pt refuses to mask
--- NOTE | 2023-08-20 10:38 | DI.RAD.S_ITS ---
PROCEDURE: XR CHEST 1V INDICATIONS: cough, chest congestion TECHNIQUE: One view of the chest was acquired. COMPARISON: None. FINDINGS: Surgical changes and devices: None. Lungs and pleura: Lungs are clear. No pleural effusions or pneumothorax. Bronchial cuffing Mediastinum: Mediastinal contours appear normal. Heart size is normal. Bones and chest wall: No suspicious bony lesions. Overlying soft tissues appear unremarkable. IMPRESSION: A few areas of bronchial cuffing which can be seen when with reactive airway disease versus atypical infection. Dictated by: Jerardo Reddy M.D. on 08/20/2023 at 10:32 Approved by: Jerardo Reddy M.D. on 08/20/2023 at 10:34
--- NOTE | 2023-08-20 10:47 | ED.URI ---
HPI - URI/Sore Throat General Chief Complaint: Upper Respiratory Symptoms Stated Complaint: TROUBLE BREATHING Time Seen by Provider: 08/20/23 10:20 Source: patient Mode of arrival: Family Vehicle History of Present Illness HPI Narrative: Patient here with with the same complaints. Patient's symptoms started about 7 or 10 days ago. started with the symptoms now she has a symptoms. Cough cold congestion. Denies any history asthma. Has not been on any recent antibiotics. Vital signs reviewed. 99% room air. Respiration 20. Patient in no distress. Patient is allergic to erythromycin Related Data Home Medications Medication Instructions Recorded Confirmed blood-glucose meter (True Metrix #1 ea 03/16/22 04/11/22 Glucose Meter) Previous Rx's Medication Instructions Recorded Disabled Parking Placard #1 ea 12/07/18 meloxicam 7.5 mg tablet 7.5 mg PO BID PRN pain #60 tabs 02/28/22 metformin 500 mg tablet 500 mg PO BID #180 tabs 02/28/22 blood sugar diagnostic (Blood #100 ea 03/01/22 Glucose Test strips) lancets 33 gauge (BD Ultra Fine #100 ea 03/01/22 Lancets) sitagliptin phosphate 100 mg 100 mg PO DAILY #90 tabs 04/11/22 tablet (Januvia) amoxicillin 875 mg-potassium 1 tab PO BID #14 tabs 08/20/23 clavulanate 125 mg tablet benzonatate 100 mg capsule 100 mg PO TID PRN cough #20 caps 08/20/23 Allergies Allergy/AdvReac Type Severity Reaction Status Date / Time erythromycin base Allergy Severe Hives, Verified 08/20/23 10:27 [ERYTHROMYCIN BASE] rash, swelling succinylcholine Allergy Severe anaphylaxis Verified 08/20/23 10:27 [SUCCINYLCHOLINE] aspirin [ASPIRIN] Allergy Mild Rash, Verified 08/20/23 10:27 nausea Review of Systems Review of Systems Narrative: GENERAL: negative chills, fatigue, malaise, fever, sweats. HEENT: negative sinus pain, ear pain, sore throat, positive congestion RESPIRATORY: Positive dyspnea, cough CARDIOVASCULAR: negative chest pain, palpitations GASTROINTESTINAL: negative nausea, vomiting, abdominal pain : negative dysuria, frequency, hematuria MUSCULOSKELETAL: negative muscle or bony pain SKIN: negative rash, skin lesions NEUROLOGIC: negative weakness, numbness ROS Unobtainable: All systems reviewed & are unremarkable except as noted in HPI and below Patient History Medical History Herniated nucleus pulposus, L5-S1, right Pseudocholinesterase deficiency Chronic bilateral low back pain with sciatica Type 2 diabetes mellitus without complication PTSD (post-traumatic stress disorder) (~1999) History of bipolar disorder (~1999) Anxiety (~1999) Migraines (~1999) Shoulder pain (~1999) Ankle pain (~2015) Surgical History Anesthesia History of cholecystectomy (~1996) History of back surgery (~2005) Status post tubal ligation (~1998) Family History Father History of heart attack History of heart disease Sister Cervical cancer Social History Smoking Status: Current every day smoker Tobacco: How many years used: 20 second hand exposure: No alcohol intake: former (Quit 2014) substance use type: marijuana (smoke, daily) Smoking Status: Current every day smoker tobacco type: cigarettes alcohol intake frequency: 0-2 drinks per day Substance Use Type: marijuana Exam Narrative Exam Narrative: GENERAL: in no distress, not toxic not dyspneic HEAD: Normocephalic. EYES: Pupils equal round ENT: Mucous membranes moist. NECK: Trachea midline. CARDIOVASCULAR: Regular rate and rhythm RESPIRATORY: Clear to auscultation. Breath sounds equal bilaterally. No wheezes, rales, or rhonchi. Patient is speaking full sentences. No respiratory distress. GASTROINTESTINAL: Abdomen soft, non-tender EXTREMITIES: No gross deformities. BACK: No flank tenderness. NEURO: AOx4. SKIN: Warm and dry PSYCH: Not anxious, is cooperative Initial Vital Signs Initial Vital Signs: Vital Signs Temperature 99.0 F 08/20/23 10:23 Pulse Rate 107 H 08/20/23 10:23 Respiratory Rate 20 08/20/23 10:23 Blood Pressure 173/90 H 08/20/23 10:23 Pulse Oximetry 99 08/20/23 10:23 Oxygen Delivery Method Room Air 08/20/23 10:23 Course Orders Ordered: ED Orders 08/20/23 10:25 Respiratory Panel (Film Array) Stat 08/20/23 10:38 Chest [XR chest 1V] Stat Discontinued Medications Amoxicillin/Clavulanate Potassium (Amoxicillin/Clav 875/125 Mg) 1 tab PO NOW ONE Stop: 08/20/23 10:47 Last Admin: 08/20/23 10:58 Dose: 1 tab Documented By: CHAYA Benzonatate (Benzonatate 100 Mg Capsule) 100 mg PO NOW ONE Stop: 08/20/23 10:47 Last Admin: 08/20/23 10:57 Dose: 100 mg Documented By: CHAYA Vital Signs Vital signs: Vital Signs - 8 hr 08/20/23 10:23 08/20/23 11:54 Temperature 99.0 F Pulse Rate 107 H 81 Respiratory Rate 20 18 Blood Pressure 173/90 H 161/85 H Pulse Oximetry 99 95 Oxygen Delivery Method Room Air Room Air MDM - URI/Sore Throat Lab Data Labs: Lab Results 08/20/23 Range/Units 10:25 Chlamy pneumoniae PCR Not detected (Not Detect) Adenovirus (PCR) Not detected (Not Detect) B.parapertussis DNA PCR Not detected (Not Detecte) Coronavirus OC43 (PCR) Not detected (Not Detect) Coronavirus HKU1 (PCR) Not detected (Not Detect) Coronavirus 229E (PCR) Not detected (Not Detect) SARS-CoV-2 (PCR) Not detected (Not Detecte) Coronavirus NL63 (PCR) Not detected (Not Detect) Human Metapneumovir PCR Not detected (Not Detect) Influenza Type A (PCR) Not detected (Not Detect) Influenza Type B (PCR) Not detected (Not Detect) M. pneumoniae (PCR) Not detected (Not Detect) Parainfluenza 1 (PCR) Not detected (Not Detect) Parainfluenza 2 (PCR) Not detected (Not Detect) Parainfluenza 3 (PCR) Not detected (Not Detect) Parainfluenza 4 (PCR) Not detected (Not Detect) RSV (PCR) Not detected (Not Detect) Entero/Rhino (PCR) Not detected (Not Detect) Imaging Data Chest x-ray: Radiologist's Impression: [address] [address] XRay Report Signed Patient: Ellen Lucero V MR#: [id number] : 1975 Acct:[id number] Age/Sex: 47 / F Date of Service: 08/20/23 Loc: ED Accession Number: [id number] Procedure: XR chest 1V Ordering Provider: Jerardo Grant MD PROCEDURE: XR CHEST 1V INDICATIONS: cough, chest congestion TECHNIQUE: One view of the chest was acquired. COMPARISON: None. FINDINGS: Surgical changes and devices: None. Lungs and pleura: Lungs are clear. No pleural effusions or pneumothorax. Bronchial cuffing Mediastinum: Mediastinal contours appear normal. Heart size is normal. Bones and chest wall: No suspicious bony lesions. Overlying soft tissues appear unremarkable. IMPRESSION: A few areas of bronchial cuffing which can be seen when with reactive airway disease versus atypical infection. Dictated by: Jerardo Reddy M.D. on 08/20/2023 at 10:32 Approved by: Jerardo Reddy M.D. on 08/20/2023 at 10:34 [facility] Narrative Medical decision making narrative: Patient here with with the same complaints. Patient's symptoms started about 7 or 10 days ago. started with the symptoms now she has a symptoms. Cough cold congestion. Denies any history asthma. Has not been on any recent antibiotics. Vital signs reviewed. 99% room air. Respiration 20. Patient in no distress. Patient is allergic to erythromycin After history and exam respiratory panel chest x-ray Ofeliasalelvin Andres [facility] Medical records reviewed: No recent visit for this complaint Differential considered: Includes but not limited to COVID influenza rhino virus adenovirus parainfluenza virus human metapneumovirus bronchitis pneumonia Lab Test results independently reviewed as above. Pertinent findings: Respiratory panel negative Imaging studies independently reviewed: Chest x-ray bronchial cuffing versus atypical infection Treatments: Augmentin Tessalon Re-evaluations: 11:27 a.m.. Reviewed results with patient and . At this time exam and results are reassuring, however will treat clinically for community-acquired pneumonia since patient's is being treated for pneumonia. Patient not requiring supplemental oxygen. In no distress. Return precautions reviewed with her. Antibiotics will be started. Patient in no distress. They desire discharge home. Heart rate improved 81 at discharge. Blood pressure improved 161/85 at discharge. No intervention required. 95% room air. Respiration 18. Patient in no distress Discussion: Appropriate for treating clinically for community-acquired pneumonia. and patient have had same symptoms for the past 7-10 days. Likely has concomitant/associated community-acquired pneumonia/bacterial. Return precautions reviewed. Nontoxic at discharge. Patient not requiring supplemental oxygen. They desire discharge home. Appropriate for Augmentin. Patient allergic to erythromycins. Patient will likely do well with monotherapy Augmentin Diagnosis: Community-acquired pneumonia Discharge Plan Departure Patient Disposition: Home Clinical Impression: Community acquired pneumonia Qualifiers: Laterality: unspecified laterality Qualified Code(s): J18.9 - Pneumonia, unspecified organism Instructions: DI for Atypical Pneumonia Activity Restrictions/Additional Instructions: Please see family doctor this week for re-evaluation. Return immediately if worse if any questions or concerns or any trouble breathing. Prescription medication antibiotics and cough medication has been sent to your pharmacy to [facility] today and continue. Your exam and results today are reassuring. Prescriptions: New benzonatate 100 mg capsule 100 mg PO TID PRN (Reason: cough) Qty: 20 0RF amoxicillin-pot clavulanate 875-125 mg tablet 1 tab PO BID Qty: 14 0RF No Action (DME) Disabled Parking Placard Qty: 1 0RF Dose Instruction: As directed Rx Instructions: Meets criteria for permanent placard meloxicam 7.5 mg tablet 7.5 mg PO BID PRN (Reason: pain) Qty: 60 2RF metformin 500 mg tablet 500 mg PO BID Qty: 180 0RF Rx Instructions: For first 2 weeks take only 1 tab daily until side effects decrease (DME) Blood Glucose Test Strip See Rx Instructions .ROUTE .MEDSUPPLY Qty: 100 3RF Rx Instructions: Check blood glucose once daily (DME) lancets [BD Ultra Fine Lancets] 33 gauge misc See Rx Instructions .ROUTE .MEDSUPPLY Qty: 100 3RF Rx Instructions: Check blood glucose once daily Januvia 100 mg tablet 100 mg PO DAILY Qty: 90 0RF (DME) blood-glucose meter [True Metrix Glucose Meter] Misc See Rx Instructions .ROUTE .MEDSUPPLY Qty: 1 Patient Comments: use to Check blood glucose once daily Rx Instructions: As directed Referrals: Arsen Zarate ARNP [Primary Care Provider] - Stand Alone Forms: Patient Portal/API, Work Release Note
[2023-08-20] MEDS: BENZONATATE 100 MG CAPSULE PO (10:57)
[2023-08-20] MEDS: AMOXICILLIN/CLAV 875/125 MG 1 TAB PO (10:58)
--- NOTE | 2023-08-20 10:58 | PC.NURSE ---
pt in hallway stating I still haven't been seen yet, pt educated that Dr. Grant as seen and evaluated her as well as ordered an xray and medication. pt states they made me painter interior finish the hallway and I just cannot do this pt ambulated to chair w/ frequent complaining. ambulated without issue, cane in hand.
--- NOTE | 2023-08-20 11:02 | PC.NURSE ---
pt insisting she must sit in the stretcher for her x-ray, accommodated the switch for her comfort.
[2023-08-20 11:18] LABS: Adenovirus Not Detected (Not Detect); B. parapertussis Not Detected (Not Detecte); Bordetella pertussis Not Detected (Not Detect); Chlamydophila pneumoniae Not Detected (Not Detect); Coronavirus 229E Not Detected (Not Detect); Coronavirus HKU1 Not Detected (Not Detect); Coronavirus NL 63 Not Detected (Not Detect); Coronavirus OC43 Not Detected (Not Detect); Human Metapneumovirus Not Detected (Not Detect); Human Rhinovirus/Enterovirus Not Detected (Not Detect); Influenza A Not Detected (Not Detect); Influenza B Not Detected (Not Detect); Mycoplasma pneumoniae Not Detected (Not Detect); Parainfluenza Virus 1 Not Detected (Not Detect); Parainfluenza Virus 2 Not Detected (Not Detect); Parainfluenza Virus 3 Not Detected (Not Detect); Parainfluenza Virus 4 Not Detected (Not Detect); Respiratory Syncytial Virus Not Detected (Not Detect); SARS- CoV-2 Not Detected (Not Detecte)
--- NOTE | 2023-08-20 11:23 | PC.NURSE ---
Dr. Grant at bedside with patient and family
[2023-08-20 11:54] VITALS: BP 161/85; PULSE 81; RESP 18; O2SAT 95
== END 2023-08-20 11:56 | disposition home or self-care (01) ==
PROVIDERS: Emergency Provider Emergency Medicine; Family Provider Podiatrist; PCP Registered Nurse Diabetes Educator
DX: J18.9 Pneumonia, unspecified organism (principal); Z20.822 Contact with and (suspected) exposure to COVID-19
CPT/HCPCS: 71045; 87633; 99283

== ENCOUNTER → 2023-09-29 08:13 | Outpatient (CLI) | payer OTHER, MEDICAID, SELFPAY ==
--- NOTE | 2023-09-29 08:14 | DI.RAD.S_ITS ---
PROCEDURE: XR LUMBAR SPINE 2-3V INDICATIONS: Low back pain; hx of injury w/surgery in 2001 TECHNIQUE: 3 views of the lumbar spine were acquired. COMPARISON: MR, MR LUMBAR SPINE WO CON, 02/17/2022, 16:12. [facility], CR, XR LUMBAR SPINE MIN 4V, 03/16/2022, 7:44. FINDINGS: Bones: 5 [id number] vertebrae are present. There is normal bony alignment. No vertebral body compression fractures. No suspicious bony lesions. Mild multilevel degenerative disc disease at L2-L3, L3-L4, L4-L5 and L5-S1. Moderate facet arthropathy at L4-L5 and L5-S1. Soft tissues: Overlying bowel gas pattern is normal. No suspicious soft tissue calcifications. IMPRESSION: 1. No acute bony abnormality. 2. Mild degenerative disc and facet disease. Dictated by: Kem Mccain M.D. on 10/01/2023 at 7:17 Approved by: Kem Mccain M.D. on 10/01/2023 at 7:18
--- NOTE | 2023-09-29 08:14 | DI.RAD.S_ITS ---
PROCEDURE: XR SHOULDER LT MIN 2V INDICATIONS: Left shoulder pain; hx of injury in 2021 TECHNIQUE: 3 views of the shoulder were acquired. COMPARISON: [facility], MICHELE, XR SHOULDER LT MIN 2V, 06/12/2021, 19:30. FINDINGS: Bones: No fractures or dislocations. No suspicious bony lesions. Mild acromioclavicular and glenohumeral joint degeneration. Visualized ribs appear intact. Soft tissues: No suspicious soft tissue calcifications. IMPRESSION: 1. No acute bony abnormality. 2. Mild degenerative joint disease. Dictated by: Kem Mccain M.D. on 10/01/2023 at 7:19 Approved by: Kem Mccain M.D. on 10/01/2023 at 7:20
--- NOTE | 2023-09-29 08:14 | DI.RAD.S_ITS ---
PROCEDURE: XR HIP W PEL IF DONE PREETI MIN 4V INDICATIONS: Bilateral hip pain possibly referred from back TECHNIQUE: AP pelvis with lateral view(s) of each hip(s). COMPARISON: None. FINDINGS: Bones: No fractures or dislocations. Pelvic ring appears intact. No suspicious bony lesions. Mild symmetric hip and sacroiliac joint degeneration. Soft tissues: The visualized bowel gas pattern is normal. No suspicious soft tissue calcifications. IMPRESSION: 1. No acute bony abnormality. 2. Mild degenerative joint disease. Dictated by: Kem Mccain M.D. on 10/01/2023 at 7:20 Approved by: Kem Mccain M.D. on 10/01/2023 at 7:21
[2023-09-29 10:48] LABS: Add Manual Diff / Slide Review NO; Basophils Absolute Auto 100 /uL (0-100); Basophils Percent Auto 0.8 % (0-2); Eosinophils Absolute Auto 200 /uL (0-450); Eosinophils Percent Auto 1.7 % (2-4); Hematocrit 42.3 % (36-46); Hemoglobin 14.1 g/dL (12.0-16.0); Lymphocytes Absolute Auto 3200 /uL (1100-4500); Lymphocytes Percent Auto 28.5 % (25-40); Mean Corpuscular HGB Conc 33.4 % (30-36); Mean Corpuscular Hemoglobin 28.2 PG (26-34); Mean Corpuscular Volume 84.3 fL (80-100); Monocytes Absolute Auto 500 /uL (0-900); Monocytes Percent Auto 4.6 % (3-14); Neutrophils Absolute Auto 7300 /uL (1500-7000); Neutrophils Percent Auto 64.4 % (50-75); Platelet Count 214 X10^3/uL (150-400); Red Blood Cell Count 5.02 X10^6/uL (4.0-5.2); Red Cell Distribution Width 13.9 % (11.6-14.8); White Blood Cell Count 11.4 X10^3/uL (4.5-11.0)
[2023-09-29 10:55] LABS: Hemoglobin A1C% w Est Avg Glu 8.6 % (4.0-6.0)
[2023-09-29 11:04] LABS: Creatinine Urine Random 72.14 mg/dL
[2023-09-29 11:08] LABS: Microalbumin Urine Random < 0.6 mg/dL (0-1.6)
[2023-09-29 11:17] LABS: Alanine Aminotransferase 17 IU/L (<35); Albumin Globulin Ratio 1.3 (1.0-2.8); Alkaline Phosphatase 58 U/L (38-126); Aspartate Aminotransferase 19 IU/L (14-36); BUN Creatinine Ratio 16.9 (6-22); Bilirubin Total 0.4 mg/dL (0.2-1.3); Blood Urea Nitrogen 10 mg/dL (7-17); Calcium 9.3 mg/dL (8.4-10.2); Carbon Dioxide 24 mmol/L (22-32); Chloride 105 mmol/L (98-107); Cholesterol 179 mg/dL (140-199); Estimated Glomerular Filt Rate > 60 mL/min (>60); Globulin 3.2 g/dL (1.7-4.1); Glucose 179 mg/dL (70-100); HDL Cholesterol 39 mg/dL (40-60); HEMOLYSIS < 15 (0-50); LDL Cholesterol Calculated 116 mg/dL (<100); Potassium 4.4 mmol/L (3.4-5.1); Sodium 135 mmol/L (137-145); Total Protein 7.2 g/dL (6.3-8.2); Triglycerides 119 mg/dL (35-150)
[2023-09-29 11:45] LABS: TSH w/ Reflex to FT4 2.55 uIU/mL (0.47-4.68)
== END ==
PROVIDERS: Family Provider Podiatrist; PCP Registered Nurse Diabetes Educator; Referring Provider Physician Assistant; Visit Provider Physician Assistant
DX: M19.012 Primary osteoarthritis, left shoulder (principal); M25.512 Pain in left shoulder; M16.0 Bilateral primary osteoarthritis of hip; M46.1 Sacroiliitis, not elsewhere classified; M25.551 Pain in right hip; M25.552 Pain in left hip; M51.36 Other intervertebral disc degeneration, lumbar region; M51.37 Other intervertebral disc degeneration, lumbosacral region; M47.816 Spondylosis without myelopathy or radiculopathy, lumbar region; M47.817 Spondylosis without myelopathy or radiculopathy, lumbosacral region; M54.50 Low back pain, unspecified; E11.9 Type 2 diabetes mellitus without complications; E78.5 Hyperlipidemia, unspecified
CPT/HCPCS: 36415; 72100; 73030; 73522; 80053; 80061; 82043; 82570; 83036; 84443; 85025

== ENCOUNTER → 2023-12-20 15:49 | Outpatient (CLI) | payer OTHER, MEDICAID, SELFPAY ==
--- NOTE | 2023-12-20 15:50 | DI.RAD.S_ITS ---
PROCEDURE: XR CERVICAL SPINE 4V OR 5V INDICATIONS: eval neck pain TECHNIQUE: 5 views of the cervical spine acquired. COMPARISON: None. FINDINGS: Bones: No fractures or dislocations to the T1 level. Oblique images demonstrate no bony foraminal stenoses. Soft tissues: No prevertebral soft tissue swelling. IMPRESSION: Unremarkable Approved by: Hector Humphrey M.D. on 12/21/2023 at 17:03
== END ==
LOC: RAD 15:50
PROVIDERS: Family Provider Podiatrist; PCP Registered Nurse Diabetes Educator; Referring Provider Registered Nurse Diabetes Educator; Visit Provider Registered Nurse Diabetes Educator
DX: M54.2 Cervicalgia (principal)
CPT/HCPCS: 72050

== ENCOUNTER → 2024-02-16 13:42 | Outpatient (CLI) | payer OTHER, MEDICAID, SELFPAY ==
--- NOTE | 2024-02-16 14:57 | DIAB.FU ---
Addendum entered by Mariama Tena 02/27/24 13:57: Documented as a follow-up, but note that this was an initial visit. Original Note: Follow-up Diabetes Education Assessment Name: Ellen Lucero V Date: 02/16/24 Time: 155-230p Dx: Type II Diabetes Provider: Elliot Hughes presents with sister, Triny, for initial DM visit. Interested in CGM. Endorses fear of fingersticks stating My body will not let me prick my own finger. Sometimes her sister or is home to check her BG, but not consistently enough per report. Recently increase in Metformin to 1000mg ER HS. No SE reported. h/o chronic pain and GI upset per report. Reports as a child she suffered from chronic hypoglycemia, always trying to keep BG at 70mg/dl or more. States she had been hospitalized for this. Reports she is unsure why now she has high BG. Self-Monitoring Blood Glucose: None Diabetes Medications: 1000mg Metformin ER HS Pertinent Labs: HgA1c: 8.6% 08/2023 Past Medical History: (Last Reviewed 12/20/23 @ 18:23 by ZINA Vuong) Ankle pain (~2015) Anxiety (~1999) Chronic bilateral low back pain with sciatica Herniated nucleus pulposus, L5-S1, right History of bipolar disorder (~1999) Migraines (~1999) Pseudocholinesterase deficiency PTSD (post-traumatic stress disorder) (~1999) Shoulder pain (~1999) Type 2 diabetes mellitus without complication Intervention: This participant was very receptive. Provided appropriate educational handouts. Discussed the following topics: Pathophysiology of hypoglycemia and hyperglycemia CGM Sample Reviewed CGM use and equipment Discussed when to check blood sugars using finger stick Reviewed high and low blood sugar signs/symptoms and treatment options Provided education for self-administration of CGM placement Educated patient on alarm settings Discussed how to remove and dispose of equipment OTC options for CGM Created SMART goals for patient self-care and success. Goals: Wear CGm x 10 days Consider keeping log book of food an symptoms Figure out playstore password if you want to try FSL option Follow-up: CODY FERNANDES follow-up in 2-3 weeks Mariama Tena RDN, DENA Certified Diabetes Care and Buildings And Grounds Director P: [phone] Thank you for this referral
== END ==
PROVIDERS: Family Provider Podiatrist; PCP Registered Nurse Diabetes Educator; Referring Provider Registered Nurse Diabetes Educator
DX: E11.9 Type 2 diabetes mellitus without complications (principal); Z71.3 Dietary counseling and surveillance; Z79.84 Long term (current) use of oral hypoglycemic drugs
CPT/HCPCS: G0108

== ENCOUNTER → 2024-02-27 13:49 | Outpatient (CLI) | payer OTHER, MEDICAID, SELFPAY ==
--- NOTE | 2024-02-27 15:44 | DIAB.MNT ---
Initial Diabetes Medical Nutrition Therapy Assessment Name: Ellen Lucero V Date: 02/27/24 Time: 2-3p Dx: Type II Diabetes Provider: Elliot Hughes presents with spouse, for initial MNT visit. h/o chronic pain and GI upset per report. Wants to try FSL3 today. States she has d/c'd soda until recently, but still endorses minimal intake. 12 pack will last 1.5 months. Removed ETOH from diet 12 years ago. Endorsed previous excessive intake. Diet recall: 8-9a: eggs, sausage OR sugar cereal (omar charms- whatever is on sale) OR nothing 12-2p: sandwich with tuna or pbj or pb honey or ham and cheese OR leftovers OR salad with protein 6-8p: bbq chicken with 1/2c potatoes OR chicken with 3/4c mac and cheese HS: nothing or couple pieces of dark chocolate +/- pb water: 16oz x 3-4 coffee with sf sweetener black 24oz occasional sprite soda Poor dentition plays a role in food choices. Plans to get dental work done eventually. Self-Monitoring Blood Glucose: Wore Dexcom G7 for 24 hours before the sensor fell off. Wants to try FSL3. Time in range for 24 hours: 0% very high 25% high 75% in range 0% low avmg/dl std dev: 20 GMI: 7.3% variation: 12.1% Diabetes Medications: 1000mg Metformin ER HS Pertinent Labs: HgA1c: 8.6% 08/2023 Past Medical History: (Last Reviewed 12/20/23 @ 18:23 by ZINA Vuong) Ankle pain (~2015) Anxiety (~1999) Chronic bilateral low back pain with sciatica Herniated nucleus pulposus, L5-S1, right History of bipolar disorder (~1999) Migraines (~1999) Pseudocholinesterase deficiency PTSD (post-traumatic stress disorder) (~1999) Shoulder pain (~1999) Type 2 diabetes mellitus without complication Nutrition Rx: Carbohydrates:Meal:30-45g Snack:15-30g Nutrition Diagnosis: - Predicted excessive CHO r/t undesireable beverages and breakfast choices aeb diet recall Intervention: This participant was very receptive. Provided appropriate educational handouts. Discussed the following topics: Plate method, pairing macronutrients, macronutrient impact on BG Impact of simple sugars on BG, ie cereal and soda Recommended servings for carbohydrates at meals and snacks Praised her in reducing sugar beverages and cutting out ETOH from diet CGM Sample Reviewed CGM use and equipment Discussed when to check blood sugars using finger stick Reviewed high and low blood sugar signs/symptoms and treatment options Provided education for self-administration of CGM placement Educated patient on alarm settings Discussed how to remove and dispose of equipment OTC options for CGM review and pricing Created SMART goals for patient self-care and success. Goals: Wear CGm x 10 days- d/c Consider keeping log book of food an symptoms - continue Figure out playstore password if you want to try FSL option- met Wear CGM x 15 days- new Add veggies to dinner- new Email RD by morning regarding CGM preference- new Follow-up: CODY FERNANDES follow-up in 2-3 weeks. If she emails this RD her preference for CGM, we can start the attempt to get it covered by insurance due to her fear of finger sticks. If this cannot be covered, we will again review OTC options. Mariama Tena RDN, OSVALDOES Certified Diabetes Care and Database Analyst P: [phone] Thank you for this referral
== END ==
PROVIDERS: Family Provider Podiatrist; PCP Registered Nurse Diabetes Educator; Referring Provider Registered Nurse Diabetes Educator
DX: E11.9 Type 2 diabetes mellitus without complications (principal); Z71.3 Dietary counseling and surveillance; Z79.84 Long term (current) use of oral hypoglycemic drugs
CPT/HCPCS: 97802

== ENCOUNTER → 2024-03-19 08:54 | Outpatient (CLI) | payer OTHER, MEDICAID, SELFPAY ==
--- NOTE | 2024-04-19 18:01 | DIAB.MNTFU ---
Follow-up Diabetes Medical Nutrition Therapy Assessment Name: Ellen Lucero V Date: 03/19/24 Time: 9 Dx: Type II Diabetes Provider: Elliot Hughes presents for DM follow-up. h/o chronic pain and GI upset per report. Sometimes emesis after nausea and unclear etiology per report. 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 Food allergy to raw onion and cream cheese reported. Wanting some budget friendly easy prep recipe ideas. Diet recall; 9a: eggs/sausage 12-2p: turkey, ham, cheese, lettuce wrap 6p: protein and chx hs: dark esme and pb Tried FSL3 and wants to get approval for CGM due to reported needle phobia. Self-Monitoring Blood Glucose: Wore FSL and wants to move forward with rx. Improved TIR with over 70% in goal. States the CGM really helps her with diet changes and choices. Today TIR: 0% very high 5% high 95% in range 0% low avmg/d GMI: 6.7% variation: 15.7% Last Visit Time in range for 24 hours: 0% very high 25% high 75% in range 0% low avmg/dl std dev: 20 GMI: 7.3% variation: 12.1% Diabetes Medications: 1000mg Metformin ER HS Pertinent Labs: HgA1c: 8.6% 08/2023 Past Medical History: (Last Reviewed 12/20/23 @ 18:23 by ZINA Vuong) Ankle pain (~2015) Anxiety (~1999) Chronic bilateral low back pain with sciatica Herniated nucleus pulposus, L5-S1, right History of bipolar disorder (~1999) Migraines (~1999) Pseudocholinesterase deficiency PTSD (post-traumatic stress disorder) (~1999) Shoulder pain (~1999) Type 2 diabetes mellitus without complication Nutrition Rx: Carbohydrates:Meal:30-45g Snack:15-30g Nutrition Diagnosis: - Predicted excessive CHO r/t undesireable beverages and breakfast choices aeb diet recall - improved Intervention: This participant was very receptive. Provided appropriate educational handouts. Discussed the following topics: CGM options and her goals with wear Recipe ideas with budget in mind ways to increase veggie intake Easy prep meals and ways to increase protein Created SMART goals for patient self-care and success. Goals: Wear CGM x 15 days- met Add veggies to dinner- met Email RD by morning regarding CGM preference- not met Try new recipe- new Follow-up: CODY FERNANDES follow-up in 3-[address] messaged provider team about CGM rx process. Mariama Tena RDN, DENA Certified Diabetes Care and Drill Setup Operator P: [phone] Thank you for this referral
== END ==
PROVIDERS: Family Provider Podiatrist; PCP Registered Nurse Diabetes Educator; Referring Provider Registered Nurse Diabetes Educator
DX: E11.9 Type 2 diabetes mellitus without complications (principal); Z79.84 Long term (current) use of oral hypoglycemic drugs; Z71.3 Dietary counseling and surveillance
CPT/HCPCS: 97802

== ENCOUNTER → 2024-04-19 09:30 | Outpatient (CLI) | payer OTHER, SELFPAY ==
--- NOTE | 2024-05-15 17:18 | DIAB.FU ---
Follow-up Diabetes Education Assessment Name: Ellen Lucero V Date: 04/19 Time: -[id number] Dx: Type II Diabetes Provider: Elliot Hughes presents for DM follow-up. h/o chronic pain and GI upset per report. Sometimes emesis after nausea and unclear etiology per report. 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 Food allergy to raw onion and cream cheese reported. Was approved for limited CGM use with Arnol 14 (scanning TID version). Not ideal but given her time in range, will probably be adequate at this time. Needle phobia reported, which prevents finger sticks. Waiting on CGM due to back order at pharmacy per report. States she is running low on Metformin rx, needs rx approval per pharmacy. Tried riced cauliflower rice and mixed veggies. States sister is on a low CHO diet for health purposes, and Ellen is trying this as well. States she is frustrated overall with healthcare communications, ie PCP, pharmacy, PT. Encouraged her to utilize portal or contact office directly. Recently started PT. Self-Monitoring Blood Glucose: FBG per CGM were 120-140mg/dl. Overall, BG seem to be in goal with lifestyle changes and DM medications Last TIR: 0% very high 5% high 95% in range 0% low avmg/d GMI: 6.7% variation: 15.7% Previous Visit Time in range for 24 hours: 0% very high 25% high 75% in range 0% low avmg/dl std dev: 20 GMI: 7.3% variation: 12.1% Diabetes Medications: 1000mg Metformin ER HS Pertinent Labs: HgA1c: 8.6% 08/2023 Past Medical History: (Last Reviewed 12/20/23 @ 18:23 by ZINA Vuong) Ankle pain (~2015) Anxiety (~1999) Chronic bilateral low back pain with sciatica Herniated nucleus pulposus, L5-S1, right History of bipolar disorder (~1999) Migraines (~1999) Pseudocholinesterase deficiency PTSD (post-traumatic stress disorder) (~1999) Shoulder pain (~1999) Type 2 diabetes mellitus without complication Intervention: This participant was very receptive. Provided appropriate educational handouts. Discussed the following topics: Types of CGm and versions Arnol 14 scanning function and reports Reaching out to provider and/or pharmacy regarding rx Recent nutrition changes Created SMART goals for patient self-care and success. Goals: Wear CGM x 15 days- met Add veggies to dinner- met Email RD by regarding CGM preference- not met Try new recipe- new Follow-up: CODY FERNANDES follow-up after pt receives her personal CGM for education. States she will call for f/u. Mariama Tena RDN, DENA Certified Diabetes Care and Tree Scout P: [phone] Thank you for this referral
== END ==
PROVIDERS: Family Provider Podiatrist; PCP Registered Nurse Diabetes Educator; Referring Provider Registered Nurse Diabetes Educator
DX: E11.9 Type 2 diabetes mellitus without complications (principal); Z79.84 Long term (current) use of oral hypoglycemic drugs; Z71.3 Dietary counseling and surveillance; Z91.018 Allergy to other foods
CPT/HCPCS: G0108

== ENCOUNTER → 2024-05-29 12:52 | Outpatient (CLI) | payer OTHER, SELFPAY ==
--- NOTE | 2024-05-29 12:53 | DI.MRI.S_ITS ---
PROCEDURE: MR LUMBAR SPINE WO CON INDICATIONS: eval chronic neck pain and lbp TECHNIQUE: Noncontrast sagittal T1 spin echo and T2 fast echo, sagittal STIR, and T2 fast spin echo through the lumbar spine. In cases with scoliosis, additional coronal T2 fast spin echo may be performed. COMPARISON: [facility], MR, MR LUMBAR SPINE WO CON, 02/17/2022, 16:12. FINDINGS: Image quality: Excellent. Alignment and Curvature: There is normal bony alignment. Bone Marrow: Marrow is of normal overall signal. No acute vertebral body compression fractures. Spinal Cord: Conus medullaris terminates at the L1 level. Visualized cord demonstrates normal signal and size. Paraspinous Soft Tissues: No paravertebral masses. T12-L1: Normal appearance. L1-L2: Normal appearance. L2-L3: Normal appearance. L3-L4: Mild arthropathy. No central or foraminal stenosis L4-L5: Mild arthropathy. No central or foraminal stenosis. L5-S1: Disc bulge and arthropathy. No central stenosis. Moderate right and mild left foraminal stenosis IMPRESSION: Arthropathy related moderate right foraminal stenosis at L5-S1. Approved by: Hector Humphrey M.D. on 05/30/2024 at 15:38
== END ==
LOC: MRI 12:52
PROVIDERS: Family Provider Podiatrist; PCP Registered Nurse Diabetes Educator; Referring Provider Registered Nurse Diabetes Educator; Visit Provider Registered Nurse Diabetes Educator
DX: M48.07 Spinal stenosis, lumbosacral region (principal); M47.817 Spondylosis without myelopathy or radiculopathy, lumbosacral region; M54.50 Low back pain, unspecified; M54.2 Cervicalgia
CPT/HCPCS: 72148

== ENCOUNTER → 2024-08-15 14:39 | Outpatient (CLI) | payer OTHER, SELFPAY | LOC: CAR 14:39 | PROVIDERS: Family Provider Podiatrist; PCP Family Medicine; Referring Provider Family Medicine; Visit Provider Family Medicine | DX: R00.2 Palpitations (principal); R55 Syncope and collapse | CPT/HCPCS: 93246 ==

== ENCOUNTER 2024-09-21 18:14 | Emergency (ER) | payer OTHER, SELFPAY ==
[2024-09-21 18:17] VITALS: BP 175/81; PULSE 95; RESP 18; TEMP 37.2; O2SAT 95; BMI 37.4
--- NOTE | 2024-09-21 18:22 | DI.RAD.S_ITS ---
PROCEDURE: XR HAND LT MIN 3V INDICATIONS: injury/bruising TECHNIQUE: 3 views of the hand(s) acquired. COMPARISON: None. FINDINGS: Bones: No fractures or dislocations. Carpal bones are normally aligned. No suspicious bony lesions. Soft tissues: No suspicious soft tissue calcifications. IMPRESSION: No acute bony abnormality. Dictated by: Phuc Willis M.D. on 09/21/2024 at 19:14 Approved by: Phuc Willis M.D. on 09/21/2024 at 19:15
[2024-09-21 20:51] VITALS: PULSE 95; O2SAT 98
[2024-09-21 20:53] VITALS: BP 164/77; PULSE 90; RESP 20; TEMP 36.6; O2SAT 96
--- NOTE | 2024-09-21 20:59 | ED_ITS ---
HPI - Extremity Injury (Upper) General Chief Complaint: Extremity Injury, Upper Stated Complaint: left arm injury Time Seen by Provider: 09/21/24 20:50 Source: patient Mode of arrival: Ambulatory History of Present Illness HPI narrative: 48-year-old female history of type 2 diabetes, pseudocholinesterase deficiency, presents with left hand and wrist pain after her sister's pit bull jerked the dog leash from her hand spontaneously causing her to be in extreme pain prior to arrival here in the ER. Patient did not take anything for the pain prior to arrival. Dog is up-to-date on all his shots. Other than what is stated 14 point review of system is negative Related Data Previous Rx's Medication Instructions Recorded Glucometer Test Kit #1 ea 10/03/23 blood sugar diagnostic (EZ Smart #100 ea 10/03/23 Plus Test strips) lancets 30 gauge (Droplet Lancets) #100 ea 10/03/23 disabled parking #1 ea 12/20/23 flash glucose scanning reader #1 ea 04/19/24 (FreeStyle Arnol 14 Day Long Key) flash glucose sensor (FreeStyle #1 ea 04/19/24 Arnol 14 Day Sensor kit) blood-glucose sensor (FreeStyle #1 ea 06/20/24 Arnol 3 Sensor device) metformin 500 mg tablet,extended 500 mg PO BID #180 tabs 07/31/24 release 24 hr methocarbamol 500 mg tablet 500 mg PO TID PRN muscle spasms 07/31/24 #30 tabs carvedilol 6.25 mg tablet 6.25 mg PO BID #60 tabs 09/12/24 disabled parking #1 ea 09/12/24 amoxicillin 875 mg-potassium 1 tab PO Q12H #14 tabs 09/21/24 clavulanate 125 mg tablet hydrocodone 5 mg-acetaminophen 325 1 tab PO Q4-6H PRN pain #20 tabs 25 mg tablet Allergies Allergy/AdvReac Type Severity Reaction Status Date / Time erythromycin base Allergy Severe Hives, Verified 07/31/24 13:34 [ERYTHROMYCIN BASE] rash, swelling succinylcholine Allergy Severe anaphylaxis Verified 07/31/24 13:34 [SUCCINYLCHOLINE] aspirin [ASPIRIN] Allergy Mild Rash, Verified 07/31/24 13:34 nausea Review of Systems Review of Systems ROS Unobtainable: All systems reviewed & are unremarkable except as noted in HPI and below Patient History Medical History (Updated 09/21/24 @ 21:07 by Rajinder Grissom DO) PAC (premature atrial contraction) PVC (premature ventricular contraction) Muscle spasms of both lower extremities Syncope Cervical spine pain Borderline personality disorder Fear of needles Herniated nucleus pulposus, L5-S1, right Pseudocholinesterase deficiency Chronic bilateral low back pain with sciatica Type 2 diabetes mellitus without complication PTSD (post-traumatic stress disorder) (~1999) Anxiety (~1999) Migraines (~1999) Shoulder pain (~1999) Ankle pain (~2016) Surgical History Anesthesia History of cholecystectomy (~1996) History of back surgery (~2005) Status post tubal ligation (~1998) Family History Father History of heart attack History of heart disease Sister Cervical cancer Social History Smoking Status: Current every day smoker Tobacco: How many years used: 20 second hand exposure: No alcohol intake: former (Quit 2014) substance use type: marijuana (smoke, daily) Smoking Status: Current every day smoker tobacco type: cigarettes alcohol intake frequency: 0-2 drinks per day Exam Narrative Exam Narrative: GENERAL: [48] year old patient appears stated age. Well-developed patient, in mild distress. HEAD: Atraumatic. Normocephalic. EYES: Pupils equal round and reactive. Extraocular motions intact. No scleral icterus. No injection or drainage. ENT: Nose without bleeding, purulent drainage. Throat without erythema, tonsillar hypertrophy or exudate. Airway patent. NECK: Trachea midline. Non tender CARDIOVASCULAR: Regular rate and rhythm without murmurs, gallops, or rubs. RESPIRATORY: Clear to auscultation. Breath sounds equal bilaterally. No wheezes, rales, or rhonchi. GASTROINTESTINAL: Abdomen soft, non-tender, nondistended. EXTREMITIES: No edema or joint tenderness. BACK: Nontender without deformity or crepitance. No flank tenderness. NEURO: AOx3. SKIN: No rash or erythema of visible areas. Dorsum of hand multiple areas of open abrasion. Full range of motion of all digits of hand and thumb. Motor sensory intact +2 radial pulse cap refill less than 2nd. Full range of motion at wrist joint and flexion-extension abduction and adduction with pain on movement slowly in all direction. Initial Vital Signs Initial Vital Signs: Vital Signs Temperature 99 F 09/21/24 18:17 Pulse Rate 95 H 09/21/24 18:17 Respiratory Rate 18 09/21/24 18:17 Blood Pressure 175/81 H 09/21/24 18:17 Pulse Oximetry 95 09/21/24 18:17 Oxygen Delivery Method Room Air 09/21/24 18:17 Course Orders Ordered: ED Orders 09/21/24 18:22 XR hand LT min 3V Stat Vital Signs Vital signs: Vital Signs - 8 hr 09/21/24 18:17 Temperature 99 F Pulse Rate 95 H Respiratory Rate 18 Blood Pressure 175/81 H Pulse Oximetry 95 Oxygen Delivery Method Room Air MDM - Extremity Injury (Upper) Imaging Data Extremity x-ray #1: Radiologist's Impression: [address] [address] XRay Report Signed Patient: Ellen Lucero V MR#: [id number] : 1975 Acct:[id number] Age/Sex: 48 / F Date of Service: 09/21/24 Loc: ED Accession Number: [id number] Procedure: XR hand LT min 3V Ordering Provider: Rajinder Grissom D.O. PROCEDURE: XR HAND LT MIN 3V INDICATIONS: injury/bruising TECHNIQUE: 3 views of the hand(s) acquired. COMPARISON: None. FINDINGS: Bones: No fractures or dislocations. Carpal bones are normally aligned. No suspicious bony lesions. Soft tissues: No suspicious soft tissue calcifications. IMPRESSION: No acute bony abnormality. Dictated by: Phuc Willis M.D. on 09/21/2024 at 19:14 Approved by: Phuc Willis M.D. on 09/21/2024 at 19:[address] [facility] Narrative Medical decision making narrative: Vital signs, nurse triage note, medication list, x-rays and previous ER visits all reviewed. Patient given ibuprofen, [place], and Augmentin here. Differential diagnosis includes cellulitis, open wound, fracture, dislocation, and contusion. DC home on Augmentin and [place]. Follow up with PCP in 1-2 weeks for recheck. Discharge Plan Departure Patient Disposition: Home Clinical Impression: Open wound Sprain of wrist Qualifiers: Encounter type: initial encounter Laterality: left Wrist sprain location: carpal joint Qualified Code(s): S63.512A - Sprain of carpal joint of left wrist, initial encounter Instructions: DI for Wrist Sprain Activity Restrictions/Additional Instructions: Return with new or worsening symptom. Take your medicines as directed. Follow up with PCP in 1-2 weeks for re-evaluation. Prescriptions: New amoxicillin-pot clavulanate 875-125 mg tablet 1 tab PO Q12H Qty: 14 0RF hydrocodone-acetaminophen 5-325 mg tablet 1 tab PO Q4-6H PRN (Reason: pain) Qty: 20 0RF No Action metformin 500 mg tablet extended release 24 hr 500 mg PO BID Qty: 180 0RF methocarbamol 500 mg tablet 500 mg PO TID PRN (Reason: muscle spasms) Qty: 30 1RF (DME) disabled parking See Rx Instructions .ROUTE .MEDSUPPLY Qty: 1 0RF Rx Instructions: I find this patient to be medically disabled and qualified for Disabled Parking as indicated, and signed, on the Accompanying Disabled Parking Application for individuals. carvedilol 6.25 mg tablet 6.25 mg PO BID Qty: 60 2RF Rx Instructions: must administer with a meal/food (DME) Glucometer Test Kit See Rx Instructions .Route .MEDSUPPLY Qty: 1 0RF Rx Instructions: As directed (DME) EZ Smart Plus Test Strip See Rx Instructions .Route Qty: 100 3RF Rx Instructions: Test once daily in the morning (DME) lancets [Droplet Lancets] 30 gauge misc See Rx Instructions .Route Qty: 100 3RF Rx Instructions: As directed (DME) FreeStyle Arnol 14 Day Sensor Kit See Rx Instructions .Route Qty: 1 12RF Rx Instructions: Use to monitor glucose continuously (DME) FreeStyle Arnol 14 Day Long Key Misc See Rx Instructions .Route Qty: 1 12RF Rx Instructions: Use to monitor glucose continuously (DME) FreeStyle Arnol 3 Sensor Device See Rx Instructions .Route Qty: 1 0RF Rx Instructions: As directed to be changed every 14 days (DME) disabled parking See Rx Instructions .ROUTE .MEDSUPPLY Qty: 1 0RF Rx Instructions: I find this patient to be medically disabled and qualified for Disabled Parking as indicated, and signed, on the Accompanying Disabled Parking Application for individuals. Referrals: Loyda Coleman MD [Primary Care Provider] - Stand Alone Forms: Patient Portal/API/Survey
[2024-09-21] MEDS: IBUPROFEN 400 MG TABLET 800 MG PO (21:07)
[2024-09-21] MEDS: AMOXICILLIN/CLAV 875/125 MG 1 TAB PO (21:07)
[2024-09-21] MEDS: HYDROCODONE/ACET 5/325 TABLET 1 TAB PO (21:08)
== END 2024-09-21 21:15 | disposition home or self-care (01) ==
PROVIDERS: Emergency Provider Family Medicine; Family Provider Podiatrist; PCP Family Medicine
DX: S63.512A Sprain of carpal joint of left wrist, initial encounter (principal); X58.XXXA Exposure to other specified factors, initial encounter
CPT/HCPCS: 73130; 99283

== ENCOUNTER → 2024-09-28 08:26 | Outpatient (CLI) | payer OTHER, SELFPAY ==
--- NOTE | 2024-09-28 08:28 | DI.MG.S_ITS ---
MM screening mammo BI: 09/28/2024. BI-RADS: 1 CLINICAL: 49-year old female for bilateral screening mammogram. Tyrer-Cuzick lifetime risk of 6.4%. No personal or first-degree family history of breast cancer. PRIOR EXAMS 08/31/2021. MAMMOGRAPHY TECHNIQUE: 2D and 3D (tomosynthesis) digital mammographic views obtained, with additional images as needed for full coverage. Current study was also evaluated with a Computer Aided Detection (CAD) system. DENSITY B. There are scattered areas of fibroglandular density. MAMMOGRAPHY FINDINGS Bilateral: No suspicious mass, asymmetry, microcalcification, or other abnormality seen. IMPRESSION: * No evidence of malignancy. RECOMMENDATIONS Bilateral * Annual screening mammography. OVERALL ASSESSMENT CATEGORY BI-RADS-1: Negative. The [employer] recommends annual screening mammography beginning at age 40 for women with average risk of breast cancer. ELECTRONICALLY SIGNED: Lexx Moise M.D. on 09/30/2024 at 07:28:17 AM PT Interpreting Station ID: [id number]
== END ==
PROVIDERS: Family Provider Podiatrist; PCP Family Medicine; Referring Provider Family Medicine; Visit Provider Family Medicine
DX: Z12.31 Encounter for screening mammogram for malignant neoplasm of breast (principal)
CPT/HCPCS: 77063; 77067

== ENCOUNTER → 2024-12-31 12:21 | Outpatient (CLI) | payer OTHER, SELFPAY ==
--- NOTE | 2024-12-31 12:22 | DI.ECHO.S_ITS ---
:Name: MICHELLE PALACIO Study Date: 12/31/2024 Height: 65 in : :Hospital Reading Location: Weight: 225 lb : : Gender: Female BSA: 2.1 m2 : :: 1975 Age: 49 yrs BP: 177/92 mmHg: :Reason For Study: SYNCOPE : :Ordering Physician: MICKIE MINA Performed By: Getachew Lao : :Referring: MICKIE MINA : + + Interpretation Summary The study quality was technically difficult. The ejection fraction is estimated to be 55-60%. Diastolic parameters suggest probable normal left ventricular diastolic function and normal filling pressures. The right ventricle is not well visualized. No obvious valvular abnormalities. Pulmonary artery pressures cannot be estimated because of the lack of a measurable TR jet velocity but the IVC suggests a CVP of around 3 mmHg. Procedure: A two-dimensional transthoracic echocardiogram with color flow and Doppler was performed. A contrast injection of Definity was performed to improve assessment of LV function. The study quality was technically difficult. There is no prior echocardiogram noted for this patient. The patient was in normal sinus rhythm during the exam. Left Ventricle: The left ventricle is normal in size. Left ventricular wall thickness is mildly increased. There is no ventricular septal defect visualized. The ejection fraction is estimated to be 55-60%. There are no focal wall motion abnormalities. Diastolic parameters suggest probable normal left ventricular diastolic function and normal filling pressures. Right Ventricle: The right ventricle is not well visualized. Atria: The left atrial size is normal. Right atrium not well visualized. The interatrial septum is not well visualized. Mitral Valve: The mitral valve is grossly normal. There is trace mitral regurgitation. Aortic Valve: The aortic valve is not well visualized. There is no hemodynamically significant valvular aortic stenosis. No aortic regurgitation is present. Tricuspid Valve: The tricuspid valve is not well visualized. No tricuspid regurgitation. Pulmonary artery pressures cannot be estimated because of the lack of a measurable TR jet velocity but the IVC suggests a CVP of around 3 mmHg. Pulmonic Valve: The pulmonic valve is not well visualized. There is no pulmonic valvular regurgitation. Great Vessels: The aortic root is normal size. The dimensions of the ascending aorta are normal. The pulmonary is not well visualized. The IVC is of normal diameter and collapses greater than 50% with a sniff. This suggests a low right atrial pressure of 3 mm Hg. Pericardium/ Pleura There is no pericardial effusion. MMode/2D Measurements & Calculations LVIDd: 4.7 cm LVOT diam: 1.8 cm LVIDs: 3.0 cm Ao root diam: 2.9 cm FS: 35.9 % asc Aorta Diam: 3.4 cm EPSS: 0.75 cm IVSd: 1.3 cm LVPWd: 0.99 cm LV maradiaga. diameter/BSA (cm/m^2): 2.3 LV sys. diameter/BSA (cm/m^2): 1.5 LA A2 area: 14.4 cm2 IVC diam: 1.9 cm LA A4 area: 18.8 cm2 LA length (vol): 5.3 cm LA vol: 43.7 ml LA vol index: 21.0 ml/m2 Doppler Measurements & Calculations Ao V2 max: 151.3 cm/sec LVOT Max Robby: 120.5 cm/sec Ao V2 mean: 104.1 cm/sec LV V1 max P.8 mmHg Ao max P.2 mmHg LV V1 VTI: 23.5 cm Ao mean P.8 mmHg EM(I,D): 1.9 cm2 Ao V2 VTI: 30.1 cm EM(V,D): 1.9 cm2 sev ratio: 0.78 EM indexed to BSA (cm^2/m^2): 0.91 MV E max robby: 84.5 cm/sec PA V2 max: 116.1 cm/sec MV A max robby: 76.3 cm/sec PA V2 mean: 84.5 cm/sec MV E/A: 1.1 PA mean P.1 mmHg Med Peak E' Robby: 7.0 cm/sec PA pr(Accel): 51.6 mmHg E/E' med: 12.0 Lat Peak E' Robby: 10.6 cm/sec E/E' lat: 8.0 E/e' average: 10.0 MV dec time: 0.18 sec SV(LVOT): 57.2 ml Reading Physician:08:02 PM
== END ==
PROVIDERS: Family Provider Podiatrist; PCP Family Medicine; Referring Provider Internal Medicine Cardiovascular Disease; Visit Provider Internal Medicine Cardiovascular Disease
DX: R55 Syncope and collapse (principal)
CPT/HCPCS: C8929; Q9957